=== PATIENT | male | born 1965 | race Caucasian/White ===

== ENCOUNTER 2017-06-08 07:43 | Emergency (ER) | payer SELFPAY ==
[2017-06-08] MEDS ORDERED: KETOROLAC 30 MG/ML 1 ML VIAL IM STA (08:08)
[2017-06-08] MEDS ORDERED: HYDROmorphone 1 MG/ML 1 ML SYRINGE IM STA (08:08)
[2017-06-08] MEDS ORDERED: ORPHENADRINE 30 MG/ML 2 ML VIAL IM STA (08:08)
--- NOTE | 2017-06-08 08:46 | ED ---
Back Pain HPI - General Chief Complaint: Back Pain/Injury Stated Complaint: left leg cramping Time Seen by Provider: 06/08/17 07:53 Source: patient, RN notes reviewed, old records reviewed Limitations: no limitations - History of Present Illness Initial Comments: This is a 51-year-old male presents emergency Department chief complaint of left leg muscle spasms and cramping pain for the past week. Patient reports that 2 weeks ago he was working in the yard bent over and pinches nerve. Patient reports that he was in seeing a chiropractor and he knows that he has a bulging disc at L4-L5. Patient reports that since he working at the chiropractor seems to be worse. He states that he's had severe cramping over his leg. He went to his primary care physician and was given pain medication and muscle relaxants. He reports that that has not seemed to help. Patient states that he is never followed up with [facility] specialist. Patient states he's had no saddle anesthesias, denies any changes in urination or bowel movements. He states that he occasionally tends to be constipated due to his new pain medication. He is not currently on a pain contract. Denies any fever or chills, dysuria or any other symptoms. - Related Data Home Medications Medication Instructions Recorded Confirmed Baclofen [Lioresal] 20 mg PO TID 06/08/17 06/08/17 HYDROcodone/APAP 7.5-325MG [[facility] 1 tab PO TID 06/08/17 06/08/17 7.5-325] Ibuprofen [Motrin] 800 mg PO TID 06/08/17 06/08/17 Previous Rx's Medication Instructions Recorded Cyclobenzaprine [Flexeril] 10 mg PO TID #15 tab 06/08/17 Dexamethasone 0.75 mg PO DAILY #12 tab 06/08/17 Hydrocodone/Acetaminophen [[facility] 1 tab PO Q6HR PRN #15 tab 06/08/17 5-325] Allergies Allergy/AdvReac Type Severity Reaction Status Date / Time No Known Allergies Allergy Verified 06/08/17 08:11 Review of Systems ROS Statement: Those systems with pertinent positive or pertinent negative responses have been documented in the HPI. ROS Other: All systems not noted in ROS Statement are negative. Past Medical History Additional Past Medical History / Comment(s): back pain History of Any Multi-Drug Resistant Organisms: None Reported Past Surgical History: Hernia Repair Past Psychological History: No Psychological Hx Reported Smoking Status: Current every day smoker Past Alcohol Use History: None Reported Past Drug Use History: None Reported General Exam - General Exam Comments Initial Comments: Is a 51-year-old male. Patient does not appear to be in any acute distress. Limitations: no limitations General appearance: alert, in no apparent distress Head exam: Present: atraumatic, normocephalic, normal inspection Eye exam: Present: normal appearance, PERRL, EOMI. Absent: scleral icterus, conjunctival injection, periorbital swelling ENT exam: Present: normal exam, mucous membranes moist Neck exam: Present: normal inspection. Absent: tenderness, meningismus, lymphadenopathy Respiratory exam: Present: normal lung sounds bilaterally. Absent: respiratory distress, wheezes, rales, rhonchi, stridor Cardiovascular Exam: Present: regular rate, normal rhythm, normal heart sounds. Absent: systolic murmur, diastolic murmur, rubs, gallop, clicks GI/Abdominal exam: Present: soft, normal bowel sounds. Absent: distended, tenderness, guarding, rebound, rigid Extremities exam: Present: normal inspection, full ROM, normal capillary refill. Absent: tenderness, pedal edema, joint swelling, calf tenderness Back exam: Present: normal inspection. Absent: full ROM (Patient reports pain over the lumbar spine. He denies any paraspinal tenderness.) Neurological exam: Present: alert, oriented X3, CN II-XII intact Psychiatric exam: Present: normal affect, normal mood Skin exam: Present: warm, dry, intact, normal color. Absent: rash Course Vital Signs 06/08/17 07:44 Temperature 97.0 F L Pulse Rate 88 Respiratory 20 Rate Blood Pressure 164/96 O2 Sat by Pulse 98 Oximetry Medical Decision Making - Medical Decision Making 51-year-old emergency department complaining of left leg pain and cramping. Patient reports he saw Dr. Diop is a bulging L4-L5. Patient has no saddle anesthesias. Normal capillary refill range of motion in his toes and legs. He reports a significant cramping in his left leg. This time patient underwent a computed tomography scan which shows disc bulging at L2 through 3 through L5- S1. Significant all day and L5-S1 considering lumbar radiculopathy symptoms. Patient has no saddle anesthesias again. No concern about a pint syndrome at this time. Patient given IM Toradol, Norflex and Dilaudid. He does report somewhat feeling better at this time. He is discharged by his primary care provider with [facility]. Patient will be given muscle relaxers, dexamethasone. Discussed following up with primary care provider. Discussed following up orthopedic physician as well. Patient agrees to treatment plan will comply. Return parameters were discussed. - Radiology Data Radiology results: report reviewed Disc bulges at L2 through 3 through L5-S1. There appears to be the greatest at L4-L5 with some mild spinal canal narrowing without stenosis. Correlate with bilateral L5 radicular symptoms. Disposition Clinical Impression: Lumbar radicular pain, Degenerative disc disease Disposition: HOME SELF-CARE Condition: Good Instructions: Acute Low Back Pain (ED) Additional Instructions: Patient denies a follow-up with primary care provider or orthopedic spinal specialist. Return to the emergency department if any alarming signs or symptoms occur including loss of bowel or bladder function. Prescriptions: Cyclobenzaprine [Flexeril] 10 mg PO TID #15 tab Dexamethasone 0.75 mg PO DAILY #12 tab Hydrocodone/Acetaminophen [[facility] 5-325] 1 tab PO Q6HR PRN #15 tab PRN Reason: Pain Referrals: None,Stated [Primary Care Provider] - 1-2 days Sarai Carlton MD [STAFF PHYSICIAN] - 1-2 days Roxane Shaver DO [Doctor of Osteopathic Medicine] - 1-2 days Time of Disposition: 09:15
--- NOTE | 2017-06-08 09:08 | CT ---
EXAMINATION TYPE: CT lumbar spine wo con DATE OF EXAM: 06/08/2017 COMPARISON: NONE HISTORY: Left leg cramping. CT DLP: 987 mGycm CONTRAST: None TECHNIQUE: CT of the lumbar spine is performed on a spiral scan at 3 mm thick sections. Reconstructed images are performed in the coronal and sagittal planes. FINDINGS: T12-L1: No focal disc herniation or significant disc bulge is evident. No spinal canal stenosis or neural foraminal stenosis is present. L1-L2: No focal disc herniation or significant disc bulge is evident. No spinal canal stenosis or n eural foraminal stenosis is present L2-L3: Mild disc bulging is anterior thecal sac contact. No AP spinal canal stenosis present. Neural foramen are patent. L3-L4: Broad-based disc bulge has mild anterior thecal sac compression. No AP spinal canal stenosis o r neural foraminal stenosis present. Mild facet degenerative changes present. L4-L5: Broad-based disc bulge has moderate anterior thecal sac compression. There is some mild AP samir rowing with an AP diameter of 1.1 cm. This is not stenotic by measurement criteria. However, the broa d-based disc bulge appears to fill the lateral recesses likely causing nerve root impingement. Facet hypertrophy is present with mild posterior lateral thecal sac compression. Foraminal impingement osman cecilio is not identified. L5-S1: Facet hypertrophy is present. Mild broad-based disc bulge has mild anterior thecal sac rl sakina. No spinal canal stenosis is present. Neural foramen are patent. Vertebral alignment appears normal. IMPRESSION: Disc bulge at L2-3 through L5-S1. This appears greatest at L4-5 with some mild spinal canal narrowing without stenosis. Correlate with bilateral L5 radicular symptoms.
[2017-06-08 09:40] VITALS: BP 134/85; PULSE 77; RESP 18; TEMP 97.6
== END 2017-06-08 09:40 | disposition home or self-care (01) ==
LOC: EC 07:43
DX: M51.36 Other intervertebral disc degeneration, lumbar region (principal); F17.200 Nicotine dependence, unspecified, uncomplicated; Z79.891 Long term (current) use of opiate analgesic; Z79.1 Long term (current) use of non-steroidal anti-inflammatories (NSAID); Z79.899 Other long term (current) drug therapy
CPT/HCPCS: 72131; 99284; 96372 ×3; J2360; J1885; J1170

== ENCOUNTER → 2021-07-22 | Outpatient (CLI) | payer BC ==
--- NOTE | 2021-07-23 04:39 | MR ---
EXAMINATION TYPE: MR shoulder RT wo con DATE OF EXAM: 07/22/2021 COMPARISON: None HISTORY: R shoulder pain, decreased range of motion Multiplanar multiecho imaging of the right shoulder without contrast. Subscapularis tendon is intact. There is a mild shoulder joint effusion. The biceps tendon is intact. There is fluid around the biceps tendon. There is large defect in the supraspinatus tendon over the humeral head. The defect measures approximately 2.5 cm. There is retraction. The glenoid theresa appear intact. There is no evidence for fracture. I see no bony destructive process . There is hypertrophic spurring at the AC joint with impingement on the supraspinatus tendon and mus jass with inferior dissection. IMPRESSION: There is large rotator cuff tear with some retraction of the supraspinatus tendon. There is moderate spurring at the AC joint and subacromial impingement. Mild shoulder joint effusion and subdeltoid effusion.
== END | disposition home or self-care (01) ==
LOC: RADMRIMAIN 10:50
PROVIDERS: ATTEND Orthopaedic Surgery
DX: M75.111 Incomplete rotator cuff tear or rupture of right shoulder, not specified as traumatic (principal); M25.411 Effusion, right shoulder

== ENCOUNTER 2022-12-09 12:18 | Inpatient (IN) | payer OTHER ==
--- NOTE | 2022-12-09 16:02 | P.PN ---
Progress Note - Text 57-year-old male patient with severe LV dysfunction He presented with syncope which turned out to be hypertensive in nature and his rhythm strips when EMS arrived during his episode of altered consciousness showed sinus rhythm No arrhythmias were noted by EMS No arrhythmias were documented on telemetry His 2-D echo showed very severe LV dysfunction ejection fraction 25% He underwent coronary angiography today and stenting to the left circumflex account Dr. Triana Plan Toprol-XL 50 mg by mouth daily Initiate ENTRESTO and stop losartan Atorvastatin 40 g daily Dual antiplatelet therapy with aspirin and Plavix I would recommend a LifeVest for 4 months for primary prevention of sudden cardiac until this LV function normalized BMP today Twelve-lead EKG today Follow-up with Dr. Lester in 1 week
[2022-12-09] MEDS ORDERED: DEXTROSE 50% SYRINGE 50 ML IVP PRN ×2 (16:03)
[2022-12-09 16:29] LABS: Glucose,Whole Blood 204 mg/dL (70-110)
[2022-12-09] MEDS ORDERED: CLOPIDOGREL 75 MG TAB ONE (16:40)
[2022-12-09] MEDS ORDERED: ASPIRIN 81 MG ONE (16:40)
[2022-12-09] MEDS: INSULIN ASPART (NovoLOG) 100 UNIT/ML VIAL SQ SCH ×2 (17:03→20:21)
[2022-12-09] MEDS: ATORVASTATIN 40 MG TAB PO SCH (17:04)
[2022-12-09] MEDS: ASPIRIN 81 MG PO SCH (17:07)
[2022-12-09] MEDS: CLOPIDOGREL 75 MG TAB PO SCH (17:07)
[2022-12-09 17:13] LABS: African American GFR (CKD) >90 (>60 ml/min/1.73 sqM); Anion Gap 8 mmol/L; Blood Urea Nitrogen 18 mg/dL (9-20); Calcium 8.8 mg/dL (8.4-10.2); Carbon Dioxide 30 mmol/L (22-30); Chloride 100 mmol/L (98-107); Glucose 197 mg/dL (74-99); Non-African American GFR(CKD) 88 (>60 ml/min/1.73 sqM); Sodium 138 mmol/L (137-145)
--- NOTE | 2022-12-09 18:55 | P.PN ---
Progress Note - Text 57-year-old male patient who presents to [facility] with a syncopal episode So far no arrhythmias have been documented 2-D echo showed severe cardio myopathy with ejection fraction of 25%, global Coronary angiography revealed moderate to severe disease in the left circumflex only. Minimal disease in the left main, LAD and RCA Therefore this patient has severe nonischemic cardio myopathy with single vessel coronary artery disease Awaiting I have far measurements in the left circumflex to assess candidacy for coronary stenting Denies alcohol use No family history of premature sudden or familial cardio myopathy Does not remember any recent antecedent viral infection in the last several months Sinus mechanism with a narrow QRS on twelve-lead EKG In view of his severe nonischemic cardio myopathy with single vessel coronary artery disease and a history of syncope, would recommend an external wearable defibrillator for the next 3-4 months and institution of beta blockers, ENTRESTO, spironolactone, statins and dual antiplatelet therapy Maximization of her medications and then reassessment of LV function after 3 months
[2022-12-09] MEDS: IPRATROPIUM-ALBUTEROL 3 ML NEB INHALATION SCH (19:29)
[2022-12-09 20:11] LABS: Glucose,Whole Blood 157 mg/dL (70-110)
[2022-12-09] MEDS: SENNOSIDES 8.6 MG TAB PO SCH (20:20)
[2022-12-09] MEDS: FAMOTIDINE 20 MG TAB PO SCH (20:20)
[2022-12-09] MEDS: SACUBITRIL/VALSARTAN 24 MG-26 MG TABLET PO SCH (20:20)
[2022-12-09] MEDS: INSULIN DETEMIR (LEVEMIR) 100 UNIT/ML SYR SQ SCH (20:21)
[2022-12-10 06:10] LABS: Glucose,Whole Blood 107 mg/dL (70-110)
[2022-12-10] MEDS: INSULIN ASPART (NovoLOG) 100 UNIT/ML VIAL SQ SCH ×4 (06:14→20:54)
[2022-12-10] MEDS: ATORVASTATIN 40 MG TAB PO SCH (06:29)
[2022-12-10] MEDS: ASPIRIN 81 MG PO SCH (06:29)
[2022-12-10] MEDS: CHOLECALCIFEROL 25 MCG (1000 IU) TABLET PO SCH (06:29)
[2022-12-10] MEDS: ASCORBIC ACID 500 MG TAB PO SCH (06:29)
[2022-12-10] MEDS: DAPAGLIFLOZIN PROPANEDIOL 10 MG TABLET PO SCH (06:30)
[2022-12-10] MEDS: CLOPIDOGREL 75 MG TAB PO SCH (06:30)
[2022-12-10] MEDS: METOPROLOL SUCCINATE (ER) 50 MG TAB.ER.24H PO SCH (06:31)
[2022-12-10] MEDS: SENNOSIDES 8.6 MG TAB PO SCH ×2 (06:31→20:54)
[2022-12-10] MEDS: FAMOTIDINE 20 MG TAB PO SCH ×2 (06:31→20:52)
[2022-12-10] MEDS: MULTIVITAMINS, THERA 1 EACH TAB PO SCH (06:31)
[2022-12-10] MEDS: guaiFENesin 600 MG TABLET.ER PO SCH (06:31)
[2022-12-10] MEDS: SACUBITRIL/VALSARTAN 24 MG-26 MG TABLET PO SCH ×2 (06:31→20:52)
[2022-12-10] MEDS: ZINC SULFATE 220 MG CAP PO SCH (06:31)
[2022-12-10] MEDS: NICOTINE 14MG/24HR PATCH TRANSDERM SCH (06:32)
[2022-12-10] MEDS: LEVOTHYROXINE 25 MCG TAB PO SCH (06:36)
[2022-12-10] MEDS ORDERED: IV FLUID CONTINUATION 1,000 ML IV ONE (08:18)
[2022-12-10] MEDS: IPRATROPIUM-ALBUTEROL 3 ML NEB INHALATION SCH ×4 (08:24→21:29)
[2022-12-10] MEDS ORDERED: HEPARIN SODIUM 1,000 UN/ML (10ML VL) ONE (08:27)
[2022-12-10] MEDS ORDERED: VERAPAMIL 2.5 MG/ML 2 ML AMP ONE (08:27)
[2022-12-10] MEDS ORDERED: LIDOCAINE 1% INJ 10MG/ML (5 ML VIAL-PF) SQ ONE (08:45)
[2022-12-10] MEDS ORDERED: VERAPAMIL SYRINGE (5 MG/10 ML) INTRAARTER ONE (08:46)
[2022-12-10] MEDS ORDERED: HEPARIN SODIUM 1,000 UN/ML (10ML VL) IV ONE (08:47)
[2022-12-10] MEDS ORDERED: MIDAZOLAM 2 MG/2 ML VIAL IV ONE (08:48)
[2022-12-10] MEDS ORDERED: fentaNYL (PF) 50 MCG/ML 2 ML AMP ONE (08:53)
[2022-12-10] MEDS ORDERED: fentaNYL (PF) 50 MCG/ML 2 ML AMP IV ONE (08:55)
[2022-12-10] MEDS ORDERED: ADENOSINE 90 MG in SODIUM CHLORIDE 0.9% 60 ML IVP ONE (09:02)
[2022-12-10] MEDS ORDERED: RX INFO: IV CONTRAST WAS GIVEN 1 EACH MISC MISCELLANE PRN (09:13)
[2022-12-10] MEDS ORDERED: SODIUM CHLORIDE 0.9% 1,000 ML IV SCH (09:15)
--- NOTE | 2022-12-10 09:16 | P.PCN ---
Date of Procedure: 12/10/22 Operative Findings: PERCUTANEOUS CORONARY INTERVENTION Performing physician Nilo Triana M.D. Procedure Performed: 1. FFR of the left circumflex coronary artery Indication: This is a 57-year-old gentleman who was diagnosed recently with cardiomyopathy. He was seen and evaluated by Dr. Lester. Further investigation was advised including a heart catheterization which revealed intermediate disease involving the left circumflex which is a large caliber vessel. He was brought today to undergo an FFR of the LCx Approach: Right radial artery Complications: None Level of Sedation: Moderate with a sedation length of 20 minutes Procedure Discussion: After obtaining an informed consent the patient was brought to the cardiac labeling associate. The right radial artery was cannulated using micropuncture technique, the micropuncture wire passed easily then I placed a 6-Maori sheath. I gave the patient 2 mg of verapamil intra-arterial and 5000 use of heparin intravenous. After zeroing the Doppler wire and equalizing between the Doppler wire and guiding catheter which was JL 3.5 guiding catheter with did after engaging the left main and wiring of the left circumflex initially and IFR and then an FFR. Both came in to be nonischemic. The FFR came in to be is 0.93. The procedure was completed was no complication Postprocedure Management: 1. Maximize medical treatment for cardiomyopathy 2. Follow-up with Dr. Lester 3. Risk factors modification
[2022-12-10] MEDS ORDERED: IOPAMIDOL-370 200ML BTL INJ ONE (09:19)
[2022-12-10 11:51] LABS: Glucose,Whole Blood 147 mg/dL (70-110)
[2022-12-10 16:42] LABS: Glucose,Whole Blood 174 mg/dL (70-110)
[2022-12-10 20:10] LABS: Glucose,Whole Blood 177 mg/dL (70-110)
[2022-12-10] MEDS: INSULIN DETEMIR (LEVEMIR) 100 UNIT/ML SYR SQ SCH (20:53)
--- NOTE | 2022-12-11 01:16 | HP ---
HISTORY AND PHYSICAL CHIEF COMPLAINT: Syncope. HISTORY OF PRESENT ILLNESS: This 57-year-old gentleman with a past medical history of multiple medical problems, being followed by Dr. Shaver in the outpatient setting, who presented with syncope to [facility]. Patient underwent cardiac catheterization which showed intermediate disease involving the left circumflex, which is a large caliber vessel. The patient underwent a fractional flow reserve by Dr. Triana, was found to be 0.[address] Triana recommended maximum medical treatment and Dr. Lester also saw the patient because of the possible cardiomyopathy, ejection fraction recommended a LifeVest at this time. There is no history of fever, rigors, chills. PAST MEDICAL HISTORY: Reviewed, include diabetes mellitus, hypertension. Rest of the history and rest of the chart is also reviewed. HOME MEDICATIONS: List is not available. ALLERGIES: None. FAMILY HISTORY: History of CAD in the family. SOCIAL HISTORY: History of smoking. REVIEW OF SYSTEMS: 14-point review is negative as mentioned earlier. PHYSICAL EXAMINATION: VITAL SIGNS: Pulse is 69, blood pressure 115/70, respirations 20. HEENT: Conjunctivae normal. NECK: No jugular venous distention. No carotid bruit. CARDIAC: No murmurs. RESPIRATIONS: Breath sounds diminished at the bases. ABDOMEN: Soft, nontender, obese. LEGS: No edema. NERVOUS SYSTEM: LABORATORY DATA: Reviewed. ASSESSMENT: 1. Syncope, possibly cardiac. 2. Status post cardiac catheterization and intermediate disease of the left circumflex, status post FFR. 3. Cardiomyopathy with ejection fraction 25%. 4. Diabetes mellitus type 2. 5. Hypertension. 6. Multiple medical issues. RECOMMENDATIONS: This is a 57-year-old gentleman with multiple complex medical issues, we will monitor the patient closely. I would recommend continue with current medications and continue with antiplatelet agents. Monitor blood sugars closely. Continue the insulin. Otherwise, we will follow the patient closely with Cardiology. I would also recommend to repeat labs tomorrow and further recommendations to follow. PROGNOSIS: Guarded. MMODL / IJN: [id number] /
[2022-12-11 04:29] VITALS: RESP 16; TEMP 97.7
[2022-12-11 06:01] LABS: Glucose,Whole Blood 108 mg/dL (70-110)
[2022-12-11] MEDS: LEVOTHYROXINE 25 MCG TAB PO SCH (06:07)
[2022-12-11] MEDS: INSULIN ASPART (NovoLOG) 100 UNIT/ML VIAL SQ SCH ×2 (06:07→12:09)
[2022-12-11 07:15] LABS: Basophils % (A) 0 %; Eosinophils # (A) 0.3 k/uL (0-0.7); Eosinophils % (A) 3 %; HCT 47.7 % (39.0-53.0); HGB 15.3 gm/dL (13.0-17.5); Lymphocytes # (A) 2.3 k/uL (1.0-4.8); Lymphocytes % (A) 27 %; MCH 29.3 pg (25.0-35.0); MCHC 32.1 g/dL (31.0-37.0); MCV 91.3 fL (80.0-100.0); Mean Platelet Volume 7.9; Monocytes # (A) 0.5 k/uL (0-1.0); Monocytes % (A) 6 %; Neutrophils # (A) 5.2 k/uL (1.3-7.7); Neutrophils % (A) 62 %; Platelet Count 209 k/uL (150-450); RBC 5.22 m/uL (4.30-5.90); RDW 13.3 % (11.5-15.5); WBC 8.4 k/uL (3.8-10.6)
[2022-12-11 07:43] LABS: ALT 88 U/L (4-49); AST 62 U/L (17-59); African American GFR (CKD) >90 (>60 ml/min/1.73 sqM); Albumin 3.5 g/dL (3.5-5.0); Alkaline Phosphatase 75 U/L (38-126); Anion Gap 7 mmol/L; Blood Urea Nitrogen 18 mg/dL (9-20); Calcium 8.5 mg/dL (8.4-10.2); Carbon Dioxide 28 mmol/L (22-30); Chloride 106 mmol/L (98-107); Glucose 94 mg/dL (74-99); Non-African American GFR(CKD) >90 (>60 ml/min/1.73 sqM); Potassium 4.2 mmol/L (3.5-5.1); Sodium 141 mmol/L (137-145); Total Bilirubin 0.5 mg/dL (0.2-1.3); Total Protein 5.6 g/dL (6.3-8.2)
[2022-12-11] MEDS: IPRATROPIUM-ALBUTEROL 3 ML NEB INHALATION SCH ×2 (07:52→12:06)
[2022-12-11] MEDS: CLOPIDOGREL 75 MG TAB PO SCH (08:42)
[2022-12-11] MEDS: NICOTINE 14MG/24HR PATCH TRANSDERM SCH (08:42)
[2022-12-11] MEDS: CHOLECALCIFEROL 25 MCG (1000 IU) TABLET PO SCH (08:42)
[2022-12-11] MEDS: ASPIRIN 81 MG PO SCH (08:42)
[2022-12-11] MEDS: DAPAGLIFLOZIN PROPANEDIOL 10 MG TABLET PO SCH (08:42)
[2022-12-11] MEDS: SACUBITRIL/VALSARTAN 24 MG-26 MG TABLET PO SCH (08:42)
[2022-12-11] MEDS: METOPROLOL SUCCINATE (ER) 50 MG TAB.ER.24H PO SCH (08:43)
[2022-12-11] MEDS: MULTIVITAMINS, THERA 1 EACH TAB PO SCH (08:43)
[2022-12-11] MEDS: ATORVASTATIN 40 MG TAB PO SCH (08:43)
[2022-12-11] MEDS: FAMOTIDINE 20 MG TAB PO SCH (08:43)
[2022-12-11] MEDS: guaiFENesin 600 MG TABLET.ER PO SCH (08:43)
[2022-12-11] MEDS: ZINC SULFATE 220 MG CAP PO SCH (08:43)
[2022-12-11] MEDS: ASCORBIC ACID 500 MG TAB PO SCH (08:43)
[2022-12-11] MEDS: SENNOSIDES 8.6 MG TAB PO SCH (08:43)
[2022-12-11 12:07] VITALS: BP 109/63
[2022-12-11 12:08] LABS: Glucose,Whole Blood 134 mg/dL (70-110)
[2022-12-11 12:20] VITALS: PULSE 76
--- NOTE | 2022-12-11 14:47 | P.PN ---
Subjective Progress Note Date: 12/11/22 HPI: 57-year-old male patient who presents to [facility] with a syncopal episode So far no arrhythmias have been documented 2-D echo showed severe cardio myopathy with ejection fraction of 25%, global Coronary angiography revealed moderate to severe disease in the left circumflex only. Minimal disease in the left main, LAD and RCA. Therefore this patient has severe nonischemic cardiomyopathy with single vessel coronary artery disease Left main and left circumflex IFR and then an FFR. Both came in to be nonischemic. The FFR came in to be is 0.93. Denies alcohol use No family history of premature sudden or familial cardio myopathy Does not remember any recent antecedent viral infection in the last several months Sinus mechanism with a narrow QRS on twelve-lead EKG 12/11 He is doing well. Denies any chest pain, dizziness, or shortness of breath. He has his lifevest at bedside. PHYSICAL EXAMINATION: No apparent distress at the time of my examination. HEENT: Head is atraumatic, normocephalic. Pupils are equal, round. Sclerae anicteric. Conjunctivae are clear. Mucous membranes of the mouth are moist. Neck is supple. There is no jugular venous distention. CHEST EXAMINATION: Lungs with diminished bases bilat. No chest wall tenderness i s noted on palpation or with deep breathing. HEART EXAMINATION: Heart regular rate and rhythm. S1, S2 heard. ABDOMEN: Soft, nontender. Bowel sounds are heard. EXTREMITIES: 2+ peripheral pulses with no evidence of peripheral edema and no calf tenderness noted. Right radial site with no hematoma, distal pulse present NEUROLOGIC EXAMINATION: Patient is awake, alert and oriented x3. Plan: Continue current medication regimen Toprol-XL 50 mg by mouth daily ENTRESTO Atorvastatin 40 mg daily Dual antiplatelet therapy with aspirin and Plavix Dr. Lester recommends a LifeVest for 4 months for primary prevention of sudden cardiac until this LV function normalized. Pt has this at bedside and has [facility] OK to discharge home Follow-up with Dr. Lester in 1 week for return to work clearance as well as pre-operative clearance I am dictating on behalf of Dr. Isaac Tony's history/physical and assessment/plan. Objective - Vital Signs Vital signs: Vital Signs Temp 97.7 F 12/11/22 04:00 Pulse 76 04/29/23 12:19 Resp 16 12/11/22 12:00 BP 109/63 12/11/22 12:00 Pulse Ox 98 12/11/22 12:00 FiO2 Intake & Output 12/10/22 12/11/22 12/11/22 18:59 06:59 18:59 Intake Total 1565.6 780 Output Total 650 Balance 915.6 780 Intake: IV 235.6 Intake, IV Titration 650 Amount Sodium Chloride 0.9% 1, 650 000 ml @ 75 mls/hr IV . [id number] [facility] Rx#:[id number] Oral 680 780 Output: Urine 650 Other: Voiding Method Toilet Toilet # Voids 1 - Labs CBC & Chem 7: 12/11/22 06:25 12/11/22 06:25 Labs: Abnormal Lab Results - Last 24 Hours (Table) 12/10/22 12/10/22 12/11/22 Range/Units 16:40 20:06 06:25 POC Glucose (mg/dL) 174 H 177 H (70-110) mg/dL AST 62 H (17-59) U/L ALT 88 H (4-49) U/L Total Protein 5.6 L (6.3-8.2) g/dL 12/11/22 Range/Units 12:08 POC Glucose (mg/dL) 134 H (70-110) mg/dL AST (17-59) U/L ALT (4-49) U/L Total Protein (6.3-8.2) g/dL
--- NOTE | 2022-12-11 15:04 | P.DS ---
Providers Date of admission: 12/09/22 12:44 Expected date of discharge: 12/11/22 Attending physician: Luis Gill Consults: 12/09/22 16:08 Consult Physician Routine Consulting Provider: Luis Gill Consult Reason/Comments: Medical management Do you want consulting provider notified?: Yes Placement Type Exists?: Yes 12/10/22 13:38 Consult Physician Routine Consulting Provider: Nilo Triana Consult Reason/Comments: chest pain Do you want consulting provider notified?: Already Contacted Primary care physician: Hortencia Hinojosa Hospital Course: Discharge diagnoses; severe cardio myopathy with ejection fraction of 25% Syncopal episode Coronary disease of left circumflex Artery Hospital course; 57-year-old male patient who presents to [facility] with a syncopal episode So far no arrhythmias have been documented 2-D echo showed severe cardio myopathy with ejection fraction of 25%, global Coronary angiography revealed moderate to severe disease in the left circumflex only. Minimal disease in the left main, LAD and RCA. Therefore this patient has severe nonischemic cardiomyopathy with single vessel coronary artery disease Cardiology recommended medical management with Toprol-XL 50 mg by mouth daily ENTRESTO Atorvastatin 40 mg daily Dual antiplatelet therapy with aspirin and Plavix Dr. Jimenez recommends a LifeVest for 4 months for primary prevention of sudden cardiac until this LV function normalized. Pt has this at bedside and has been educated on use by the [facility]. PHYSICAL EXAMINATION: GENERAL: The patient is alert and oriented x3, not in any acute distress. Well developed, well nourished. HEENT: Pupils are round and equally reacting to light. EOMI. No scleral icterus. No conjunctival pallor. Normocephalic, atraumatic. No pharyngeal erythema. No thyromegaly. CARDIOVASCULAR: S1 and S2 present. No murmurs, rubs, or gallops. PULMONARY: Chest is clear to auscultation, no wheezing or crackles. ABDOMEN: Soft, nontender, nondistended, normoactive bowel sounds. No palpable organomegaly. MUSCULOSKELETAL: No joint swelling or deformity. EXTREMITIES: No cyanosis, clubbing, or pedal edema. NEUROLOGICAL: Gross neurological examination did not reveal any focal deficits. SKIN: No rashes. Plan - Discharge Summary Discharge Rx Participant: No New Discharge Prescriptions: New Aspirin 81 mg PO DAILY #30 tab Clopidogrel [Plavix] 75 mg PO DAILY #30 tab Metoprolol Succinate (ER) [Toprol XL] 50 mg PO DAILY #30 tab Insulin Detemir (Levemir) [Levemir] 35 unit SQ HS #1 each Sacubitril/Valsartan [Entresto 24 mg-26 mg Tablet] 1 each PO BID #60 tab Dapagliflozin Propanediol [Farxiga] 10 mg PO DAILY #30 tab Atorvastatin [Lipitor] 40 mg PO DAILY #30 tab Levothyroxine Sodium [Synthroid] 25 mcg PO DAILY@0630 #30 tab Discontinued Ibuprofen [Motrin] 800 mg PO TID Cyclobenzaprine [Flexeril] 10 mg PO TID #15 tab Hydrocodone/Acetaminophen [[place] 5-325] 1 tab PO Q6HR PRN #15 tab PRN Reason: Pain dexAMETHasone [Decadron] See Taper PO DIRECTED HYDROcodone/APAP 7.5-325MG [[place] 7.5-325] 1 tab PO Q4H PRN #30 tab PRN Reason: Pain lisinopriL [Zestril] 10 mg PO DAILY #30 tab amLODIPine [Norvasc] 5 mg PO DAILY #30 tab Discharge Medication List Aspirin 81 mg PO DAILY #30 tab 12/11/22 [Rx] Atorvastatin [Lipitor] 40 mg PO DAILY #30 tab 12/11/22 [Rx] Clopidogrel [Plavix] 75 mg PO DAILY #30 tab 12/11/22 [Rx] Dapagliflozin Propanediol [Farxiga] 10 mg PO DAILY #30 tab 12/11/22 [Rx] Insulin Detemir (Levemir) [Levemir] 35 unit SQ HS #1 each 12/11/22 [Rx] Levothyroxine Sodium [Synthroid] 25 mcg PO DAILY@0630 #30 tab 12/11/22 [Rx] Metoprolol Succinate (ER) [Toprol XL] 50 mg PO DAILY #30 tab 12/11/22 [Rx] Sacubitril/Valsartan [Entresto 24 mg-26 mg Tablet] 1 each PO BID #60 tab 12/11/22 [Rx] Follow up Appointment(s)/Referral(s): Nilo Triana MD [STAFF PHYSICIAN] - 1 Week Patient Instructions/Handouts: After Radial Heart Catheterization (GEN) Activity/Diet/Wound Care/Special Instructions: Wear LifeVest as instructed at all times. Follow up with Dr. jimenez in 1 week. Off work until cleared by Dr. Jimenez. Discharge Disposition: HOME SELF-CARE
== END 2022-12-11 15:22 | disposition home or self-care (01) | DRG 316 ==
LOC: 3SCARD 12:44
PROVIDERS: ADMIT Family Medicine; ATTEND Family Medicine
PROC: 4A033BC Measurement of Arterial Pressure, Coronary, Percutaneous Approach (ICD-10-PCS; principal; 2022-12-10 10:05)
DX: I42.8 Other cardiomyopathies (principal); I25.10 Atherosclerotic heart disease of native coronary artery without angina pectoris; E11.65 Type 2 diabetes mellitus with hyperglycemia; G89.29 Other chronic pain; M54.9 Dorsalgia, unspecified; I10 Essential (primary) hypertension; Z28.21 Immunization not carried out because of patient refusal; Z82.49 Family history of ischemic heart disease and other diseases of the circulatory system; Z87.891 Personal history of nicotine dependence
CPT/HCPCS: 80048; 80053; 83735; 85025; 93454; 93799; 94640; 94760

== ENCOUNTER 2022-12-27 08:56 | Day surgery (SDC) | payer OTHER ==
[~2022-12-27 08:56] MED LIST: ACETAMINOPHEN TAB 500 MG TAB PO PRN; HEPARIN SODIUM,PORCINE/PF 5,000 UNIT/0.5 ML SYRINGE SQ PRN
[2022-12-27] MEDS ORDERED: ONDANSETRON 4 MG/2 ML VIAL ONE (09:28)
[2022-12-27] MEDS ORDERED: LACTATED RINGERS 1,000 ML IV ONE ×4 (09:34→16:45)
[2022-12-27] MEDS ORDERED: DEXAMETHASONE SOD PHOSPHATE 4 MG/ML 1 ML VIAL IVP ONE (09:35)
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
[2022-12-27 09:49] LABS: Glucose,Whole Blood 161 mg/dL (70-110)
[2022-12-27] MEDS ORDERED: TAMSULOSIN 0.4 MG CAP.ER.24H PO ONE (11:12)
[2022-12-27] MEDS ORDERED: LIDOCAINE 2% INJ 20 MG/ML (2 ML VIAL) ONE (11:40)
[2022-12-27] MEDS ORDERED: ROCURONIUM 10 MG/ML (5 ML VIAL) IV ONE (11:40)
[2022-12-27] MEDS ORDERED: fentaNYL (PF) 50 MCG/ML 2 ML AMP ONE (11:40)
[2022-12-27] MEDS ORDERED: GLYCOPYRROLATE 0.2 MG/ML 2 ML VIAL ONE (11:40)
[2022-12-27] MEDS ORDERED: PROPOFOL 10 MG/ML 20 ML VIAL IV ONE (11:40)
[2022-12-27] MEDS ORDERED: SUCCINYLCHOLINE CHLORIDE 200 MG/10 ML VIAL IV ONE (11:40)
[2022-12-27] MEDS ORDERED: KETOROLAC 15 MG/ML 1 ML VIAL ONE (11:40)
[2022-12-27] MEDS ORDERED: MIDAZOLAM 2 MG/2 ML VIAL ONE (11:40)
[2022-12-27] MEDS ORDERED: HYDROmorphone (PF) 1 MG/ML ONE (11:40)
[2022-12-27] MEDS ORDERED: NEOSTIGMINE 1 MG/ML 10 ML VIAL ONE (11:40)
[2022-12-27] MEDS ORDERED: BUPIVACAINE (PF) 0.25% 30 ML VIAL SQ ONE ×2 (12:08)
[2022-12-27] MEDS ORDERED: TAMSULOSIN 0.4 MG CAP.ER.24H PO STA (14:37)
[2022-12-27 14:38] VITALS: TEMP 96.9
--- NOTE | 2022-12-27 14:42 | P.OP ---
Date of Procedure: 12/27/22 Procedure(s) Performed: PREOPERATIVE DIAGNOSIS: Bilateral inguinal hernia POSTOPERATIVE DIAGNOSIS: Bilateral large indirect inguinal hernia PROCEDURE: Da René assisted laparoscopic repair bilateral inguinal hernia with mesh SURGEON: Dr. Azul ANESTHESIA: General OPERATIVE PROCEDURE DETAILS: Patient was placed in the operating table in the supine position. The patient was placed under general anesthesia. The abdomen was prepped and draped in usual sterile fashion. A small curvilinear supraumbilical incision was made. The fascia was retracted anteriorly with Kasandra forceps. The Veress needle was inserted. The saline drop test was normal. Insufflation took place to 15 mmHg. An 8 mm trocar was placed into the peritoneal cavity. 2 additional 8 mm trochars were placed in the right upper quadrant and left upper quadrant under visualization. The robotic arms were then brought in and docked into place. The fenestrated bipolar was used in the left arm and the laparoscopic garth was utilized in the right arm. A 30 8 mm scope was used in the up position. The peritoneal cavity was inspected. The patient had a large right indirect inguinal hernia and a large sized left indirect inguinal hernia. A portion of pericolonic fat was incarcerated into the left inguinal hernia. This was able to be reduced with pressure. A incision was created on the peritoneum across the lower abdomen superior to the bladder. The preperitoneal dissection took place bilaterally at that time. The indirect hernia on the right-hand side was reduced using blunt dissection. Dax's ligament and the pubic symphysis were well-visualized. Dissection on the left-hand side of the indirect hernia sac then took place without difficulty as well. Once we had full dissection in both sacs fully reduced 2 separate 15 x 10 mm Progrip mesh were placed within the abdomen extending to the midline. These were then sutured to the Dax's ligament across the pubic symphysis to the opposite side using a running 30 absorbable V lock suture. This covered all hernia spaces nicely. The peritoneal defect was then closed bilaterally using a absorbable 2-0 VLok suture. The hernia sacs were incorporated into the peritoneal closure to help prevent future recurrence. The pneumoperitoneum was then evacuated. The skin of all 3 sites was closed using a 4-0 Monocryl stitch. Skin glue was then applied. TYPE OF MESH USED: 15 cm progrip LOCATION OF MESH: Preperitoneal FIXATION: 30 absorbable V lock PREOPERATIVE DISCUSSION ON SMOKING CESSASTION: Yes PREOPERATIVE DISCUSSION ON MORBID OBESITY: Yes PREOPERATIVE DISCUSSION ON APPROPRIATE USE OF NARCOTIC USE: Yes PREOPERATIVE EDUCATION: Multi Modal, Smoking Cessation and Weight Loss with BMI over 35. DISPOSITION: Stable to recovery room
[2022-12-27] MEDS ORDERED: ACETAMINOPHEN TAB 325 MG TAB PO SCH (14:45)
[2022-12-27 14:50] VITALS: RESP 16
[2022-12-27] MEDS ORDERED: HYDROmorphone 0.5 MG/0.5 ML SYRINGE IVP ONE ×3 (15:02→15:24)
[2022-12-27 16:56] VITALS: BP 133/88; PULSE 84
[2022-12-27] MEDS ORDERED: IBUPROFEN 600 MG TAB PO SCH (17:45)
== END 2022-12-27 17:50 | disposition home or self-care (01) ==
LOC: OR 08:56
PROVIDERS: ATTEND Surgery
DX: K40.90 Unilateral inguinal hernia, without obstruction or gangrene, not specified as recurrent (principal); K40.30 Unilateral inguinal hernia, with obstruction, without gangrene, not specified as recurrent; I10 Essential (primary) hypertension; E78.5 Hyperlipidemia, unspecified; E11.9 Type 2 diabetes mellitus without complications; F17.210 Nicotine dependence, cigarettes, uncomplicated; Z79.4 Long term (current) use of insulin; Z79.84 Long term (current) use of oral hypoglycemic drugs; Z79.82 Long term (current) use of aspirin
CPT/HCPCS: 49650; S2900; 86850; 86900; 86901; 88304